=== PATIENT | female | born 1965 | race Caucasian/White ===

== ENCOUNTER 2017-02-10 05:57 | Day surgery (SDC) | payer OTHER ==
[2017-02-10] MEDS ORDERED: PEPCID ONE (06:21)
[2017-02-10] MEDS ORDERED: REGLAN ONE (06:21)
[2017-02-10] MEDS ORDERED: LR 1,000 ML ONE (06:21)
[2017-02-10] MEDS ORDERED: KEFZOL 1 GM/D5W 50 ML ONE (06:22)
[2017-02-10] MEDS ORDERED: XYLOCAINE 1%/EPI 1:100,000 ONE (07:10)
[2017-02-10] MEDS ORDERED: HEPARIN ONE (07:10)
[2017-02-10] MEDS ORDERED: NS 250 ML ONE (07:10)
[2017-02-10] MEDS ORDERED: KEFZOL ONE (07:10)
[2017-02-10] MEDS ORDERED: ZOFRAN ONE (09:10)
[2017-02-10] MEDS ORDERED: DECADRON ONE (09:11)
[2017-02-10] MEDS ORDERED: XYLOCAINE-MPF 2% ONE (09:11)
[2017-02-10 10:24] VITALS: BP 117/63
[2017-02-10] MEDS ORDERED: DIPRIVAN 1% ONE (12:44)
--- NOTE | 2017-02-10 13:25 | OPERATIVE NOTE ---
PROCEDURE DATE: 02/10/2017 PROCEDURE PERFORMED: Left subclavian port placement. SURGEON: Arley Valdovinos MD [employer] MONITOR: Nimisha Perry RN PREOPERATIVE DIAGNOSIS: Ovarian cancer. POSTOPERATIVE DIAGNOSIS: Ovarian cancer. DESCRIPTION OF PROCEDURE: Satisfactory general anesthesia achieved, the upper anterior chest and neck were prepped and draped in a sterile fashion. We anesthetized the skin in the deltopectoral groove and incised the skin, the area was anesthetized. We developed subcutaneous pocket that would admit the power port. We accessed the left subclavian vein on the first stick and without difficulty. We passed the guidewire into the superior vena cava under fluoroscopic guidance. We then passed the dilator and introducer sheath over the guidewire. We removed the dilator and guidewire and introduced the 9.6-Danish single-lumen silicone catheter through the sheath into the superior vena cava at the junction of right atrium. We cut the catheter to the appropriate length, passed it on the stem of the port, locked it in position. We placed the port within the pocket. We irrigated out the port pocket with Kefzol-impregnated saline. We placed a 2-0 silk through the subcutaneous tissue and the hole in the rim of the port to secure it in position. We then closed the subcutaneous tissue with 3-0 Polysorb. We accessed the port. It aspirated and irrigated easily. We gave the patient 4 mL of Hep-Lock. We then closed the skin with a 4-0 Polysorb subcuticular stitch. Telfa and sterile OpSite was applied. She tolerated it well, was sent to the recovery room in satisfactory condition.
== END 2017-02-10 09:39 | disposition home or self-care (01) ==
LOC: OPS 05:57
PROVIDERS: ATTEND Surgery
DX: C56.9 Malignant neoplasm of unspecified ovary (principal); M19.90 Unspecified osteoarthritis, unspecified site; F17.210 Nicotine dependence, cigarettes, uncomplicated
CPT/HCPCS: 77001; J0690; J1100; J2405; J7050; J7120